=== PATIENT | female | born 1970 | race Caucasian/White ===

== ENCOUNTER → 2020-06-15 | Outpatient (CLI) | payer OTHER ==
--- NOTE | 2020-06-15 12:51 | XR ---
EXAMINATION TYPE: XR abdomen 2V DATE OF EXAM: 06/15/2020 COMPARISON: NONE HISTORY: Pain TECHNIQUE: Single supine KUB image of the abdomen is obtained FINDINGS: Small bowel demonstrates no evidence for dilatation or air fluid levels. Gas and fecal material is seen in non-distended colon. No convincing evidence for pneumoperitoneum. 6 mm calculus overlying the lower pole of the left kidney. The lung bases are clear. The osseous structures are intact. IMPRESSION: 1. Overall nonobstructive bowel gas pattern.
== END | disposition home or self-care (01) ==
LOC: RADXRYALE 10:52
PROVIDERS: ATTEND Family Medicine
DX: R10.814 Left lower quadrant abdominal tenderness (principal); R31.29 Other microscopic hematuria; M54.5 Low back pain
CPT/HCPCS: 74019

== ENCOUNTER → 2020-06-26 | Outpatient (CLI) | payer OTHER ==
--- NOTE | 2020-06-26 08:51 | US ---
EXAMINATION TYPE: US kidneys/renal and bladder DATE OF EXAM: 06/26/2020 COMPARISON: CT June 20, 2013. Abdominal x-ray June 15, 2020 CLINICAL HISTORY: N20.0 Calculus of kidney; R10.9 unspecified. left flank pain EXAM MEASUREMENTS: Right Kidney: 12.2 x 3.8 x 5.3 cm Left Kidney: 13.3 x 5.4 x 4.6 cm Right Kidney: no evidence of hydronephrosis Left Kidney: dense echogenic focus lower pole = 0.7cm Bladder: wnl Bilateral Jets seen: yes When scanning the right kidney adjacent liver is heterogeneously hyperechoic. Suspect nonobstructing 7 mm calculus lower pole left kidney. Finding correlates with recent x-ray. IMPRESSION: No hydronephrosis seen bilaterally. Confirmation of 6 to 7 mm nonobstructing lower pole l eft renal calculus.
== END | disposition home or self-care (01) ==
LOC: RADUSWWP 07:47
PROVIDERS: ATTEND Family Medicine
DX: N20.0 Calculus of kidney (principal)
CPT/HCPCS: 76770

== ENCOUNTER → 2020-08-01 | Outpatient (CLI) | payer OTHER ==
--- NOTE | 2020-08-01 15:58 | XR ---
EXAMINATION TYPE: XR KUB DATE OF EXAM: 08/01/2020 COMPARISON: None INDICATION: Kidney calcification TECHNIQUE: Single view abdomen FINDINGS: There is a normal bowel gas pattern. Psoas margins are normal. No organomegaly is present. r there is a 0.5 cm calcification inferior pole left kidney. IMPRESSION: 1. Inferior pole left renal stone
== END ==
LOC: RADXRMAIN 14:25
PROVIDERS: ATTEND Urology
DX: N20.0 Calculus of kidney (principal)
CPT/HCPCS: 74018

== ENCOUNTER → 2020-08-24 | Outpatient (CLI) | payer OTHER ==
--- NOTE | 2020-08-24 13:52 | XR ---
EXAMINATION TYPE: XR KUB DATE OF EXAM: 08/24/2020 COMPARISON: 08/01/2020 HISTORY: Pain TECHNIQUE: One view abdominal series FINDINGS: The osseous structures are intact. The bowel gas pattern is nonspecific. Hypertrophic change of the greater trochanter. There is a 3 mm calcification overlying the lower pole left kidney. 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 IMPRESSION: 1. Lower pole left renal calculus now measures 3 mm and previously measured 5.4 mm.
== END | disposition home or self-care (01) ==
LOC: RADXRMAIN 10:07
PROVIDERS: ATTEND Urology
DX: N20.0 Calculus of kidney (principal)
CPT/HCPCS: 74018

== ENCOUNTER → 2020-09-21 | Outpatient (CLI) | payer OTHER ==
--- NOTE | 2020-09-21 14:24 | XR ---
EXAMINATION TYPE: XR KUB DATE OF EXAM: 09/21/2020 COMPARISON: 08/24/2020 INDICATION: Left-sided kidney stone TECHNIQUE: Single view abdomen frontal projection FINDINGS: There is a normal bowel gas pattern. Psoas margins are normal. No organomegaly is present. There is stable 0.6 cm calcification inferior pole left kidney. IMPRESSION: 1. Inferior pole left renal stone
== END | disposition home or self-care (01) ==
LOC: RADXRMAIN 10:03
PROVIDERS: ATTEND Urology
DX: N20.0 Calculus of kidney (principal)
CPT/HCPCS: 74018

== ENCOUNTER → 2024-03-17 | Outpatient (CLI) | payer BC ==
--- NOTE | 2024-03-17 12:38 | MM ---
Reason for Exam: Screening (asymptomatic). Last mammogram was performed 1 year(s) and 7 month(s) ago. Patient History: Menarche at age 11. First Full-Term at age 23. Postmenopausal. Patient has history of breast feeding. Other cancer. Patient used Hormonal Contraceptives for 2 years. Risk Values: Patience 5 year model risk: 1.1%. NCI Lifetime model risk: 8.4%. Prior Study Comparison: 11/29/2020 Bilateral MG 3D screening mammo w/cad, [facility]. 07/25/2022 Bilateral MG 3D screening mammo w/cad, [facility]. Tissue Density: There are scattered areas of fibroglandular density. Findings: Analyzed By CAD. Right breast: There is no suspicious group of microcalcifications or new suspicious mass. Left breast: There is no suspicious group of microcalcifications or new suspicious mass. Overall Assessment: Negative, BI-RAD 1 Management: Screening Mammogram of both breasts in [address] [facility] will attempt to contact patient to return for supplemental views and ultrasound if indicated. Patient should continue monthly self-breast exams. A clinical breast exam by your physician is recommended on an annual basis. This exam should not preclude additional follow-up of suspicious palpable abnormalities. Note on Patience scores and lifetime risk: 1. A Patience score greater than 3% is considered moderate risk. If this is the case, consider specialist referral to assess eligibility for a risk reducing agent. 2. If overall lifetime risk for the development of breast cancer is 20% or higher, the patient may qualify for future screening with alternating mammogram and breast MRI. [facility], , 03/17/2024 12:35 PM. Electronically signed and approved by: Sam Garza DO
== END | disposition home or self-care (01) ==
LOC: RADMAMWWP 06:59
PROVIDERS: ATTEND Obstetrics & Gynecology
CPT/HCPCS: 77063; 77067